=== PATIENT | female | born 1965 | race Native Hawaiian/Other Pacific Islander ===

== ENCOUNTER 2019-11-19 09:32 | Outpatient (CLI) | payer OTHER | END 2019-11-19 20:09 | disposition home or self-care (01) | LOC: RAD 09:32 | DX: S99.821A Other specified injuries of right foot, initial encounter (principal) ==

== ENCOUNTER 2019-12-17 07:27 | Outpatient (CLI) | payer OTHER | END 2019-12-17 19:39 | disposition home or self-care (01) | LOC: RAD 07:27 | DX: S99.821A Other specified injuries of right foot, initial encounter (principal) ==

== ENCOUNTER 2019-12-27 07:49 | Outpatient (CLI) | payer OTHER | END 2019-12-27 18:55 | disposition home or self-care (01) | LOC: RAD 07:49 | DX: M85.80 Other specified disorders of bone density and structure, unspecified site (principal); Z78.0 Asymptomatic menopausal state ==

== ENCOUNTER 2020-09-08 09:14 | Outpatient (CLI) | payer OTHER | END 2020-09-08 21:54 | disposition home or self-care (01) | LOC: RAD 09:14 | PROVIDERS: ATTEND Nurse Practitioner Primary Care | DX: Z03.89 Encounter for observation for other suspected diseases and conditions ruled out (principal) ==